=== PATIENT | male | born 1995 | race Caucasian/White ===

== ENCOUNTER 2016-09-11 08:53 | Emergency (ER) | payer MEDICAID ==
[~2016-09-11] VITALS: Ht 190.5 cm; Wt 112.0 kg
[~2016-09-11 08:53] MED LIST: ATIV2INJ2 IJ; CARN330T PO; CLOB1SUS PO; D31000CA OR; DEPA500T PO; DEPA500T3 PO; DILA50CH CHEW; FLOV110A INH; INTU3TAB OR; MELA3TAB23 PO; MILK500C PO; MULTCHW12 PO; OMEG875C PO; PHEN100 PO; REME15TA PO; VIMP200T PO
[2016-09-11 09:07] VITALS: BP 132/71; PULSE 76; RESP 16; TEMP 98.8; O2SAT 97
[2016-09-11] MEDS ORDERED: INTU3TAB PO (09:29)
[2016-09-11] MEDS ORDERED: MULT1TAB84 PO (09:29)
[2016-09-11] MEDS ORDERED: MELA3TAB PO (09:29)
[2016-09-11] MEDS ORDERED: ONFI20TA PO (09:29)
[2016-09-11] MEDS ORDERED: REME15TA PO (09:29)
[2016-09-11] MEDS ORDERED: DEPA500T3 PO ×2 (09:29)
[2016-09-11] MEDS ORDERED: MILK1CAP PO (09:29)
[2016-09-11] MEDS ORDERED: DIVA250ER PO (09:29)
[2016-09-11] MEDS ORDERED: FLUTI44I INH (09:29)
[2016-09-11] MEDS ORDERED: CHOL1CAP6 PO (09:29)
[2016-09-11] MEDS ORDERED: ATIV2INJ2 IM (09:29)
[2016-09-11] MEDS ORDERED: FISH500C PO (09:29)
[2016-09-11] MEDS ORDERED: CARN330T PO (09:29)
--- NOTE | 2016-09-11 09:44 | PD ---
HPI Chief Complaint: Injury Time Seen by Provider: 09:34 Travel History International Travel<30 days: No Contact w/Intl Traveler<30days: No Traveled to known affect area: No History of Present Illness HPI This is a 20-year-old male who presents to the emergency department having fallen and injured himself during kickball yesterday. The patient has a history of developmental delay and didn't tell his home nurse until yesterday when she noticed he had a large amount of bruising and swelling along his right ankle. Patient provides limited history. His father reports that today he seems to be feeling better but they're still concerned given the degree of swelling of the ankle and foot. PFSH Past Medical History ADHD: Yes Asthma: No Autoimmune Disease: No Blood Disorders: No Heart Rhythm Problems: No Cardiovascular Problems: No Chest Pain: No Cystic Fibrosis: No Developmental Delay: Yes Diabetes: No Diminished Hearing: No Gastrointestinal Disorders: No Genitourinary: No Hypertension: No Musculoskeletal: No Neurologic: Yes ("neuro deficits") Reproductive: No Respiratory: No Immunizations Current: Yes Seizures: Yes (DRUG ADDICTED AT ) Sickle Cell Disease: No Sleep Apnea: No Past Surgical History Abdominal Surgery: No Body Medical Devices: VAGAL NERVE STIMULATOR Cardiac Surgery: No Ear Surgery: No Endocrine Surgery: No Genitourinary Surgery: No Gynecologic Surgery: No Neurologic Surgery: Yes (VAGUS STIMULATOR , FEBRUARY 2011 RIGHT TEMPORAL LOBECTOMY) Oral Surgery: No Thoracic Surgery: No Tonsillectomy: Yes Other Surgery: Yes (strbismus surg x 2; vagal nerve stim x 3; circumsision) Social History Alcohol Use: No Tobacco Use: No Substance Use: No Allergies-Medications (Allergen,Severity, Reaction): Coded Allergies: Keppra (Verified Allergy, Severe, 09/11/16) Lamictal (Verified Allergy, Severe, "SEVERE RASH", 09/11/16) Risperdal (Verified Allergy, Unknown, Bone marrow suppression, 09/11/16) Reported Meds & Prescriptions Reported Meds & Active Scripts Active Reported Multivitamin Adults (Multiple Vitamins W/ Minerals) 1 Tab 1 Tab PO DAILY Remeron (Mirtazapine) 15 Mg Tab 15 Mg PO HS Milk Thistle 1,000 Mg Cap 1 Cap PO DAILY Melatonin 3 Mg Tab 1 Tab PO BID Carnitor (Levocarnitine (Metabolic Modif)) 330 Mg Tab 1 Tab PO TID Intuniv (Guanfacine ER) 3 Mg [place] 3 Mg PO HS Flovent Hfa 10.6 GM Inh (Fluticasone Propionate) 44 Mcg/Act Inh 2 Puff INH BID Use daily at the same time. Fish Oil ([place]-3 Fatty Acids) 500 Mg Cap 875 Mg PO DAILY Depakote ER (Divalproex Sodium) 500 Mg [place] 1,000 Mg PO MOWEFR Depakote ER (Divalproex Sodium) 250 Mg [place] 750 Mg PO TUTHSASU Depakote ER (Divalproex Sodium) 500 Mg [place] 1,000 Mg PO HS Onfi (Clobazam) 20 Mg Tab 20 Mg PO BID Vitamin D-3 (Cholecalciferol) 1,000 Unit Cap 1 Tab PO BID Ativan Inj (Lorazepam) 2 Mg/Ml Inj 3 Mg IM DIRECTED PRN Review of Systems ROS Limitations: Poor Historian Physical Exam Narrative GENERAL: Well-nourished, well-developed patient. SKIN: Ecchymoses along the heel and over the Achilles tendon as well as along the lateral ankle HEAD: Normocephalic. EYES: No scleral icterus. No injection or drainage. NECK: Supple, trachea midline. CARDIOVASCULAR: Regular rate and rhythm without murmurs. 2+ rate DP pulse with normal capillary refill. RESPIRATORY: Breath sounds equal bilaterally. No accessory muscle use. GASTROINTESTINAL: Abdomen soft, non-tender, nondistended. MUSCULOSKELETAL: Swelling, moderate joint effusion, tender to palpation over the lateral malleolus of the right foot. NEURO: sensation is grossly intact to light touch. Data Data Last Documented VS Vital Signs Date Time Temp Pulse Resp B/P Pulse Ox O2 Delivery O2 Flow Rate FiO2 09/11/16 09:07 98.8 76 16 132/71 97 Orders Foot, Complete ([id number]) (09/11/16 ) Ankle, Complete ([id number]) (09/11/16 ) Knee, Ltd (1 Or 2vws) (09/11/16 ) MDM Medical Decision Making Medical Screen Exam Complete: Yes Emergency Medical Condition: Yes Interpretation(s) Last 24 hours Impressions Knee X-Ray 09/11/16 0000 Signed Impressions: Service Date/Time: Sunday, September 11, 2016 10:19 - CONCLUSION: No acute disease. Gaston Leahy MD Foot X-Ray 09/11/16 0000 Signed Impressions: Service Date/Time: Sunday, September 11, 2016 10:07 - CONCLUSION: No acute disease. Gaston Leahy MD Ankle X-Ray 09/11/16 0000 Signed Impressions: Service Date/Time: Sunday, September 11, 2016 10:11 - CONCLUSION: Soft tissue swelling along the lateral aspect of the right ankle without evidence of acute fracture or dislocation. Gaston Leahy MD Differential Diagnosis Ankle sprain, lateral malleolus fracture, medial malleolus fracture, fibular fracture Narrative Course This is a 20-year-old male who presents to the emergency department having sustained an ankle injury yesterday. Patient has significant swelling of the ankle but a normal neurovascular exam. X-rays were obtained which demonstrate no acute fracture. Patient will be discharged home with Reggie wrap, ice, elevation and orthopedic follow up as needed. Diagnosis Primary Impression: Ankle sprain Qualified Code: S93.401A - Sprain of right ankle, unspecified ligament, initial encounter Referrals: Archie Alvarado Jr., MD Patient Instructions: General Instructions Additional Instructions: If you develop severe pain in the foot or ankle, numbness, weakness, or coolness of your foot return to the emergency department immediately. - Use crutches as needed and rest your ankle until your pain improves. - Apply ice to your ankle for 20 minutes every 3 hours for the first 2 days. - Use an reggie wrap to minimize swelling. - Keep your ankle elevated when you are resting. - Use ibuprofen as needed for pain. - Gradually start exercises with your ankle, moving it upward, downward and in small circles. Perform 20 clockwise and 20 counterclockwise circles twice daily. Med/Other Pt SpecificInfo: No Change to Meds Disposition: 01 DISCHARGE HOME Condition: Stable Virgie Broderick MD Sep 11, 2016 09:43
--- NOTE | 2016-09-11 10:41 | RADHPO ---
EXAM DATE/TIME: 09/11/2016 10:07 [facility] COMPARISON: No previous studies available for comparison. INDICATIONS : Right foot pain post fall during kickball game. MEDICAL HISTORY : SURGICAL HISTORY : Tonsillectomy. Craniotomy. ENCOUNTER: Initial ACUITY: 2 days PAIN SCORE: 2/10 LOCATION: Right foot FINDINGS: Three view examination of the right foot demonstrates no soft tissue swelling, dislocation, or fractu re. The tarsal bones appear intact. The interphalangeal and metatarsophalangeal joints are intact. The calcaneus is intact. Bony mineralization is normal. CONCLUSION: No acute disease. Gaston Leahy MD on September 11, 2016 at 10:38 Board Certified Radiologist. This report was verified electronically.
--- NOTE | 2016-09-11 10:43 | RADHPO ---
EXAM DATE/TIME: 09/11/2016 10:11 [facility] COMPARISON: No previous studies available for comparison. INDICATIONS : Right ankle pain/swelling post fall during kickball game. MEDICAL HISTORY : SURGICAL HISTORY : Tonsillectomy. Craniotomy. ENCOUNTER: Initial ACUITY: 1 day PAIN SCORE: 2/10 LOCATION: Right ankle FINDINGS: Significant periarticular soft tissue swelling is seen along the lateral malleolus. There is no evide nce of acute fracture. Ankle mortise be well-maintained. There are no osteochondral lesions. CONCLUSION: Soft tissue swelling along the lateral aspect of the right ankle without evidence of acute fracture o r dislocation. Gaston Leahy MD on September 11, 2016 at 10:39 Board Certified Radiologist. This report was verified electronically.
--- NOTE | 2016-09-11 10:44 | RADHPO ---
EXAM DATE/TIME: 09/11/2016 10:19 [facility] COMPARISON: No previous studies available for comparison. INDICATIONS : Right knee pain post fall during kickball game. MEDICAL HISTORY : SURGICAL HISTORY : Tonsillectomy. Craniotomy. ENCOUNTER: Initial ACUITY: 1 day PAIN SCORE: 2/10 LOCATION: Right knee FINDINGS: Two view examination of the right knee demonstrates no evidence of fracture or dislocation. Bony min eralization is normal. The suprapatellar soft tissues have a normal configuration. CONCLUSION: No acute disease. Gaston Leahy MD on September 11, 2016 at 10:42 Board Certified Radiologist. This report was verified electronically.
[2016-10-29] MEDS ORDERED: TETA1INJ6 IM (11:35)
[2016-10-29] MEDS ORDERED: ADACINJ3 IM (11:35)
[2016-10-29] MEDS ORDERED: MENI0.5S4 IM (11:46)
[2016-11-29] MEDS ORDERED: MENI0.5S4 IM (08:21)
[2016-12-31] MEDS ORDERED: INTU3TAB PO (17:38)
== END 2016-09-11 11:27 | disposition home or self-care (01) ==
LOC: PHED 08:53
DX: S93.401A Sprain of unspecified ligament of right ankle, initial encounter (principal); W18.30XA Fall on same level, unspecified, initial encounter; Y93.69 Activity, other involving other sports and athletics played as a team or group; Y92.838 Other recreation area as the place of occurrence of the external cause
CPT/HCPCS: 73560; 73610; 73630; 99283